=== PATIENT | male | born 1980 | race Caucasian/White ===

== ENCOUNTER 2016-04-09 10:57 | Emergency (ER) | payer SELFPAY ==
[2016-04-09 11:05] VITALS: TEMP 97.9
--- NOTE | 2016-04-09 11:33 | EDPHY ---
H & P Stated Complaint: longboard injury r ankle yesterday Time Seen by Provider: 04/09/16 11:24 HPI/ROS: CHIEF COMPLAINT: Right ankle pain HISTORY OF PRESENT ILLNESS: The patient is a 35-year-old man who twisted his ankle yesterday evening while skateboarding. He has pain and swelling to the lateral aspect of his right ankle. He has pain to the distal fibula. No abrasions or lacerations. Mild erythema which she states is from wearing warm compresses. REVIEW OF SYSTEMS: Constitutional: denies: chills, fever, recent illness, recent injury EENTM: denies: blurred vision, double vision, nose congestion Respiratory: denies: cough, shortness of breath Cardiac: denies: chest pain, irregular heart rate, lightheadedness, palpitations Gastrointestinal/Abdominal: denies: abdominal pain, diarrhea, nausea, vomiting, blood streaked stools Genitourinary: denies: dysuria, frequency, hematuria, pain Musculoskeletal: See HPI Skin: denies: lesions, rash, jaundice, bruising Neurological: denies: headache, numbness, paresthesia, tingling, dizziness, weakness Hematologic/Lymphatic: denies: blood clots, easy bleeding, easy bruising Immunologic/allergic: denies: HIV/AIDS, transplant EXAM: GENERAL: Well-appearing, well-nourished and in no acute distress. HEAD: Atraumatic, normocephalic. EYES: Pupils equal round and reactive to light, extraocular movements intact, sclera anicteric, conjunctiva are normal. ENT: TMs normal, nares patent, oropharynx clear without exudates. Moist mucous membranes. NECK: Normal range of motion, supple without lymphadenopathy or JVD. LUNGS: Breath sounds clear to auscultation bilaterally and equal. No wheezes rales or rhonchi. HEART: Regular rate and rhythm without murmurs, rubs or gallops. ABDOMEN: Soft, nontender, normoactive bowel sounds. No guarding, no rebound. No masses appreciated. BACK: No CVA tenderness, no spinal tenderness, step-offs or deformities EXTREMITIES: Right ankle pain, swelling and tenderness to distal fibula. Swelling to lateral ligaments. NEUROLOGICAL: Cranial nerves II through XII grossly intact. Normal speech, normal gait. 5/5 strength, normal movement in all extremities, normal sensation PSYCH: Normal mood, normal affect. SKIN: Warm, dry, normal turgor, no visible rashes or lesions. Source: Patient Exam Limitations: No limitations - Personal History Current Tetanus/Diphtheria Vaccine: Yes Tetanus Vaccine Date: 2011 - Medical/Surgical History Hx Asthma: Yes Hx Chronic Respiratory Disease: No Hx Diabetes: No Hx Cardiac Disease: No Hx Renal Disease: No Hx Cirrhosis: No Hx Alcoholism: No Hx HIV/AIDS: No Hx Splenectomy or Spleen Trauma: No Other PMH: EXERCISED INDUCED ASTHMA - Family History Significant Family History: No pertinent family hx - Social History Smoking Status: Former smoker Alcohol Use: Sober Drug Use: None Constitutional: Initial Vital Signs Temperature (C) 36.6 C 04/09/16 11:03 Heart Rate 100 04/09/16 11:03 Respiratory Rate 20 04/09/16 11:03 Blood Pressure 128/96 H 04/09/16 11:03 O2 Sat (%) 95 04/09/16 11:03 O2 Delivery Mode Room Air Allergies/Adverse Reactions: No Known Drug Allergies Allergy (Verified 04/09/16 11:02) Home Medications: Medication Instructions Recorded Hydrocodone/APAP 5/325 [[place] 1 - 2 tab PO Q4H PRN #20 tab 04/09/16 5/325 (RX)] Medical Decision Making - Diagnostics Imaging: X-ray: Ankle x-ray was obtained. I viewed the images myself on the PACS system. My interpretation of the images is: Positive for distal fibular fracture. The radiologist interpretation is distal fibula fracture. Procedures: Procedure: Splint placement. A Maurisio boot splint was applied. After application of the splint I returned and re-examined the patient. The splint was adequately immobilizing the joint and distal to the splint the patient's circulation and sensation was intact. ED Course/Re-evaluation: We discussed the x-ray results. I will place him in an Isaac wrap and Maurisio boot. I will make him nonweightbearing until he follows up with Orthopedics. He understands and agrees with this plan. I will give him Vicodin for pain control. Differential Diagnosis: Partial list of the Differential diagnosis considered include but were not limited to; ankle fracture, ankle sprain and although unlikely based on the history and physical exam, I also considered dislocation, vascular injury, nerve injury. I discussed these differential diagnoses and the plan with the patient as well as the usual and expected course. The patient understands that the diagnosis is provisional and that in medicine we are not always correct and that further workup is often warranted. Usual and customary warnings were given. All of the patient's questions were answered. The patient was instructed to return to the emergency department should the symptoms at all worsen or return, otherwise to followup with the physician as we discussed. Departure - Departure Disposition: Home, Routine, Self-Care Clinical Impression: Ankle fracture, right Qualifiers: Encounter type: initial encounter Fracture type: closed Qualifier Code: ( S82.891A) Other fracture of right lower leg, initial encounter for closed fracture Condition: Fair Instructions: Hydrocodone/Acetaminophen (By mouth), Ankle Fracture (ED) Referrals: Christofer Reed MD [Medical Doctor] - As per Instructions Prescriptions: Hydrocodone/APAP 5/325 [[place] 5/325 (RX)] 1 - 2 tab PO Q4H PRN #20 tab PRN Reason: Pain, Moderate
--- NOTE | 2016-04-09 12:11 | DX ---
Right Ankle, Three Portable Views History: Pain, post trauma. Fall yesterday. Findings: There is an acute oblique fracture coursing through the distal fibula just above the level of the ankle mortise. There is slight lateral displacement of the distal fibula compared to the more proximal fibula. There is no angulation or shortening.. There is lateral soft tissue swelling. The ta lar dome is intact. Impression: Distal fibular fracture..
[2016-04-09 13:44] VITALS: BP 122/85; PULSE 88; RESP 16; O2SAT 97
== END 2016-04-09 13:41 | disposition home or self-care (01) ==
DX: S82.831A Other fracture of upper and lower end of right fibula, initial encounter for closed fracture (principal); J45.909 Unspecified asthma, uncomplicated; Z87.891 Personal history of nicotine dependence; V00.138A Other skateboard accident, initial encounter; Y93.51 Activity, roller skating (inline) and skateboarding
CPT/HCPCS: L4386